=== PATIENT | female | born 1990 | race American Indian/Alaskan Native ===

== ENCOUNTER 2020-11-19 15:08 | Emergency (ER) | payer MEDICAID ==
[2020-11-19] MEDS ORDERED: ACETAMINOPHEN 325 MG TAB PO ONE (16:14)
[2020-11-19] MEDS ORDERED: ONDANSETRON 4 MG ODT TAB PO ONE (16:14)
--- NOTE | 2020-11-19 16:27 | Emergency Department Report ---
ED Female HPI - General Chief complaint: Abdominal Pain Stated complaint: BAD CRAMPS/SPOTTING Time Seen by Provider: 11/19/20 15:30 Source: patient Mode of arrival: Ambulatory Limitations: No Limitations - History of Present Illness Initial comments: pt is a 30 yo female who presents to the ED with c/o vaginal bleeding that began yesterday. she has lower abd cramping and states she has associated n/v. she states she had three episodes of vomiting yesterday. she denies any fever, urinary symptoms, abnormal vaginal discharge, diarrhea, constipation. she states her LNMP was in 10/11/2020. allergy latex, phenytoin, tomato. PMHx seizures. - Related Data Allergies Allergy/AdvReac Type Severity Reaction Status Date / Time latex Allergy Hives Verified 11/19/20 15:20 phenytoin [From Dilantin] Allergy Seizure Verified 11/19/20 15:20 tomato Allergy Hives Verified 11/19/20 15:20 ED Review of Systems ROS: Stated complaint: BAD CRAMPS/SPOTTING Other details as noted in HPI Comment: All other systems reviewed and negative ED Past Medical Hx - Past Medical History Hx Seizures: Yes Hx Asthma: Yes - Surgical History Additional Surgical History: tonsillectomy, - Social History Smoking Status: Current Every Day Smoker ED Physical Exam - General Limitations: No Limitations General appearance: alert, in no apparent distress - Head Head exam: Present: atraumatic, normocephalic - Eye Eye exam: Present: normal appearance - ENT ENT exam: Present: mucous membranes moist - Respiratory Respiratory exam: Present: normal lung sounds bilaterally. Absent: respiratory distress, wheezes, rales, rhonchi, stridor, chest wall tenderness, accessory muscle use, decreased breath sounds, prolonged expiratory - Cardiovascular Cardiovascular Exam: Present: regular rate, normal rhythm, normal heart sounds. Absent: systolic murmur, diastolic murmur, rubs, gallop - GI/Abdominal GI/Abdominal exam: Present: soft, normal bowel sounds. Absent: distended, tenderness, guarding, rebound, rigid - Neurological Exam Neurological exam: Present: alert, oriented X3 - Psychiatric Psychiatric exam: Present: normal affect, normal mood - Skin Skin exam: Present: warm, dry, intact ED Course Vital Signs 11/19/20 11/19/20 11/19/20 15:12 19:20 19:24 Temperature 98.9 F Pulse Rate 83 65 55 L Respiratory 20 16 16 Rate Blood Pressure 99/63 Blood Pressure 168/66 122/66 [Left] O2 Sat by Pulse 100 99 99 Oximetry 11/19/20 20:17 Temperature Pulse Rate Respiratory 14 Rate Blood Pressure Blood Pressure [Left] O2 Sat by Pulse Oximetry ED Medical Decision Making - Lab Data Result diagrams: 11/19/20 16:20 11/19/20 16:23 Lab Results 11/19/20 11/19/20 11/19/20 Range/Units 16:20 16:23 16:23 WBC 8.5 (4.5-11.0) K/mm3 RBC 4.30 (3.65-5.03) M/mm3 Hgb 13.4 (10.1-14.3) gm/dl Hct 39.5 (30.3-42.9) % MCV 92 (79-97) fl MCH 31 (28-32) pg MCHC 34 (30-34) % RDW 13.9 (13.2-15.2) % Plt Count 192 (140-440) K/mm3 Lymph % (Auto) 26.7 (13.4-35.0) % [place] % (Auto) 9.9 H (0.0-7.3) % Eos % (Auto) 1.4 (0.0-4.3) % Baso % (Auto) 0.4 (0.0-1.8) % Lymph # (Auto) 2.3 (1.2-5.4) K/mm3 [place] # (Auto) 0.8 (0.0-0.8) K/mm3 Eos # (Auto) 0.1 (0.0-0.4) K/mm3 Baso # (Auto) 0.0 (0.0-0.1) K/mm3 Seg Neutrophils % 61.6 (40.0-70.0) % Seg Neutrophils # 5.2 (1.8-7.7) K/mm3 Sodium 137 (137-145) mmol/L Potassium 3.8 (3.6-5.0) mmol/L Chloride 102.1 (98-107) mmol/L Carbon Dioxide 29 (22-30) mmol/L Anion Gap 10 mmol/L BUN 8 (7-17) mg/dL Creatinine 0.8 (0.6-1.2) mg/dL Estimated GFR > 60 ml/min BUN/Creatinine Ratio 10 % Glucose 82 (65-100) mg/dL Calcium 10.0 (8.4-10.2) mg/dL Total Bilirubin 0.20 (0.1-1.2) mg/dL AST 14 (5-40) units/L ALT 15 (7-56) units/L Alkaline Phosphatase 62 (35-129) units/L Total Protein 6.7 (6.3-8.2) g/dL Albumin 4.3 (3.9-5) g/dL Albumin/Globulin Ratio 1.8 % HCG, Quant 5549 H (0-4) mIU/mL Urine Color (Yellow) Urine Turbidity (Clear) Urine pH (5.0-7.0) Ur Specific [place] (1.003-1.030) Urine Protein (Negative) mg/dL Urine Glucose (UA) (Negative) mg/dL Urine Ketones (Negative) mg/dL Urine Blood (Negative) Urine Nitrite (Negative) Urine Bilirubin (Negative) Urine Urobilinogen (<2.0) mg/dL Ur Leukocyte Esterase (Negative) Urine WBC (Auto) (0.0-6.0) /HPF Urine RBC (Auto) (0.0-6.0) /HPF U Epithel Cells (Auto) (0-13.0) /HPF Urine Bacteria (Auto) (Negative) /HPF Urine WBC Clumps /HPF Urine Mucus /HPF Urine Yeast (Budding) /HPF Blood Type 11/19/20 11/19/20 Range/Units 16:27 17:18 WBC (4.5-11.0) K/mm3 RBC (3.65-5.03) M/mm3 Hgb (10.1-14.3) gm/dl Hct (30.3-42.9) % MCV (79-97) fl MCH (28-32) pg MCHC (30-34) % RDW (13.2-15.2) % Plt Count (140-440) K/mm3 Lymph % (Auto) (13.4-35.0) % [place] % (Auto) (0.0-7.3) % Eos % (Auto) (0.0-4.3) % Baso % (Auto) (0.0-1.8) % Lymph # (Auto) (1.2-5.4) K/mm3 [place] # (Auto) (0.0-0.8) K/mm3 Eos # (Auto) (0.0-0.4) K/mm3 Baso # (Auto) (0.0-0.1) K/mm3 Seg Neutrophils % (40.0-70.0) % Seg Neutrophils # (1.8-7.7) K/mm3 Sodium (137-145) mmol/L Potassium (3.6-5.0) mmol/L Chloride (98-107) mmol/L Carbon Dioxide (22-30) mmol/L Anion Gap mmol/L BUN (7-17) mg/dL Creatinine (0.6-1.2) mg/dL Estimated GFR ml/min BUN/Creatinine Ratio % Glucose (65-100) mg/dL Calcium (8.4-10.2) mg/dL Total Bilirubin (0.1-1.2) mg/dL AST (5-40) units/L ALT (7-56) units/L Alkaline Phosphatase (35-129) units/L Total Protein (6.3-8.2) g/dL Albumin (3.9-5) g/dL Albumin/Globulin Ratio % HCG, Quant (0-4) mIU/mL Urine Color [place] (Yellow) Urine Turbidity Turbid (Clear) Urine pH 7.0 (5.0-7.0) Ur Specific [place] 1.017 (1.003-1.030) Urine Protein 30 mg/dl (Negative) mg/dL Urine Glucose (UA) Neg (Negative) mg/dL Urine Ketones Neg (Negative) mg/dL Urine Blood Neg (Negative) Urine Nitrite Neg (Negative) Urine Bilirubin Neg (Negative) Urine Urobilinogen 2.0 (<2.0) mg/dL Ur Leukocyte Esterase Neg (Negative) Urine WBC (Auto) 25.0 H (0.0-6.0) /HPF Urine RBC (Auto) 12.0 (0.0-6.0) /HPF U Epithel Cells (Auto) 13.0 (0-13.0) /HPF Urine Bacteria (Auto) 3+ (Negative) /HPF Urine WBC Clumps 3+ /HPF Urine Mucus 2+ /HPF Urine Yeast (Budding) 3+ /HPF Blood Type O POSITIVE Vital Signs 11/19/20 11/19/20 11/19/20 15:12 19:20 19:24 Temperature 98.9 F Pulse Rate 83 65 55 L Respiratory 20 16 16 Rate Blood Pressure 99/63 Blood Pressure 168/66 122/66 [Left] O2 Sat by Pulse 100 99 99 Oximetry 11/19/20 20:17 Temperature Pulse Rate Respiratory 14 Rate Blood Pressure Blood Pressure [Left] O2 Sat by Pulse Oximetry - Radiology Data Radiology results: report reviewed Ordering Physician: ERENDIRA CASEY Date of Service: 11/19/20 Procedure(s): US OB <= 14 weeks fetus Accession Number(s): [id number] cc: ERENDIRA CASEY EARLY OBSTETRICAL ULTRASOUND INDICATION: , bleeding, pain, dates not known COMPARISON: None pertinent available TECHNIQUE: Transabdominal and endovaginal FINDINGS: Uterus measures 9.6 x 6.4 x 7.3 cm. Endometrial stripe measures approximately 13 mm. A small ovoid gestational sac is seen in the fundal endometrium with a yolk sac visualized but no cardiac activity or pole is noted. Right ovary measures 3 cm in length. No abnormalities are seen. Left ovary measures 7.8 cm in length and shows a 4.6 cm anechoic cyst. Only trace free fluid is seen. IMPRESSION: 1. Small intrauterine gestational sac is noted but viability is not confirmed. I suspect this is a nonviable but follow-up is needed. 2. Moderate left ovarian cyst. Recommend follow-up. Signer Name: Richard Breen MD Signed: 11/19/2020 7:09 PM Workstation Name: [id number] Transcribed By: Dictated By: Richard Breen MD Electronically Authenticated By: Richard Breen MD Signed Date/Time: 11/19/201908 DD/ 04 TD/TT: - Medical Decision Making pt is a 30 yo female who presents to the ED with c/o vaginal bleeding that began yesterday. she has lower abd cramping and states she has associated n/v. she states she had three episodes of vomiting yesterday. she denies any fever, urinary symptoms, abnormal vaginal discharge, diarrhea, constipation. she states her LNMP was in 10/11/2020. allergy latex, phenytoin, tomato. PMHx seizures. Initial vitals with mildly decreased blood pressure, improved upon repeat. No abdominal tenderness on exam, no guarding, no rebound, no rigidity, normal bowel sounds, no peritoneal signs. Labs with hCG quant of 5549. pt is Rh positive. UA shows a small amount of white blood cells, negative for leukocyte esterase, negative nitrites, there is some yeast present in the urine, patient states that she has been having bleeding, urine culture sent, will follow up on urine culture results, patient is not having any urinary symptoms, she denies any vaginal itching, vaginal discharge, vaginal burning. OB US: 1. Small intrauterine gestational sac is noted but viability is not confirmed. I suspect this is a nonviable but follow-up is needed. 2. Moderate left ovarian cyst. Recommend follow-up. Discussed all results with patient and discussed the importance of follow-up. discussed the importance of having a repeat hcg quant in two days, her urine culture can also be reviewed at that time. Advised patient May take Tylenol as needed for any discomfort. Increase your water intake. Please take a vitamin [id number]. Follow-up with [facility] within the next 2 days. You need to have a repeat hCG quant in 2 days, if unable to follow-up with [facility] may return to emergency room. Return to emergency room for any worsening symptoms. - Differential Diagnosis IUP, ectopic, miscarriage, AUB, fibroids, adenomyosis, ovarian cyst Critical care attestation.: If time is entered above; I have spent that time in minutes in the direct care of this critically ill patient, excluding procedure time. ED Disposition Clinical Impression: Threatened miscarriage Ovarian cyst Qualifiers: Laterality: left Qualified Code(s): N83.202 - Unspecified ovarian cyst, left side Disposition: DC-01 TO HOME OR SELFCARE Is pt being admited?: No Does the pt Need Aspirin: No Condition: Stable Instructions: Threatened Miscarriage, Ovarian Cyst, Abdominal Pain (ED) Additional Instructions: May take Tylenol as needed for any discomfort. Increase your water intake. Please take a vitamin [id number]. Follow-up with [facility] within the next 2 days. You need to have a repeat hCG quant in 2 days, if unable to follow-up with [facility] may return to emergency room. Return to emergency room for any worsening symptoms. Referrals: JACKLYN HICKS MD [Primary Care Provider] - 2-3 Days [facility] [Provider Group] - 2-3 Days Time of Disposition: 19:17 Print Language: ERITREAN
[2020-11-19 16:45] LABS: Basophils % (Auto) 0.4 % (0.0-1.8); Eosinophils # (Auto) 0.1 K/mm3 (0.0-0.4); Eosinophils % (Auto) 1.4 % (0.0-4.3); Hematocrit 39.5 % (30.3-42.9); Hemoglobin 13.4 gm/dl (10.1-14.3); Lymphocytes # (Auto) 2.3 K/mm3 (1.2-5.4); Lymphocytes % (Auto) 26.7 % (13.4-35.0); Mean Corpuscular HGB Conc 34 % (30-34); Mean Corpuscular Volume 92 fl (79-97); Monocytes # (Auto) 0.8 K/mm3 (0.0-0.8); Monocytes % (Auto) 9.9 % (0.0-7.3); Platelet Count 192 K/mm3 (140-440); Red Cell Distribution Width 13.9 % (13.2-15.2)
[2020-11-19 16:54] LABS: Bacteria,Urine 3+ /HPF (Negative); Bilirubin,Urine NEG (Negative); Blood,Urine NEG (Negative); Color,Urine Amber (Yellow); Mucus,Urine 2+ /HPF
[2020-11-19 17:02] LABS: Alanine Aminotransferase 15 units/L (7-56); Albumin 4.3 g/dL (3.9-5); BUN/Creatinine Ratio 10; Blood Urea Nitrogen 8 mg/dL (7-17); Hemolysis Index 4
--- NOTE | 2020-11-19 19:14 | Ultrasound Report ---
EARLY OBSTETRICAL ULTRASOUND INDICATION: , bleeding, pain, dates not known COMPARISON: None pertinent available TECHNIQUE: Transabdominal and endovaginal FINDINGS: Uterus measures 9.6 x 6.4 x 7.3 cm. Endometrial stripe measures approximately 13 mm. A smal l ovoid gestational sac is seen in the fundal endometrium with a yolk sac visualized but no car diac activity or pole is noted. Right ovary measures 3 cm in length. No abnormalities are seen. Left ovary measures 7.8 cm in length and shows a 4.6 cm anechoic cyst. Only trace free fluid is seen. IMPRESSION: 1. Small intrauterine gestational sac is noted but viability is not confirmed. I suspect this is a no nviable but follow-up is needed. 2. Moderate left ovarian cyst. Recommend follow-up. Signer Name: Richard Breen MD Signed: 11/19/2020 7:09 PM Workstation Name: [id number]
[2020-11-19 19:25] VITALS: BP 122/66
== END 2020-11-19 19:20 | disposition home or self-care (01) ==
LOC: ED 15:08
DX: O20.0 Threatened abortion (principal); O34.81 Maternal care for other abnormalities of pelvic organs, first trimester; N83.209 Unspecified ovarian cyst, unspecified side; R56.9 Unspecified convulsions; J45.909 Unspecified asthma, uncomplicated; F17.200 Nicotine dependence, unspecified, uncomplicated; Z3A.00 Weeks of gestation of pregnancy not specified; Z90.89 Acquired absence of other organs; Z98.890 Other specified postprocedural states; Z91.040 Latex allergy status; Z91.018 Allergy to other foods; Z88.8 Allergy status to other drugs, medicaments and biological substances
CPT/HCPCS: 36415; 76801; 76817; 80053; 81001; 84702; 85025; 86900; 86901; 87086; Q0162